=== PATIENT | female | born 1990 | race Two or more races ===

== ENCOUNTER 2023-02-24 20:33 | Emergency (ER) | payer OTHER ==
[~2023-02-24] VITALS: Ht 160 cm; Wt 54.4 kg
== END 2023-02-24 23:07 | disposition home or self-care (01) ==
LOC: ER 20:33
DX: S13.4XXA Sprain of ligaments of cervical spine, initial encounter (principal); V43.52XA Car driver injured in collision with other type car in traffic accident, initial encounter; Y93.89 Activity, other specified; Y92.413 State road as the place of occurrence of the external cause

== ENCOUNTER 2025-09-22 13:30 | Inpatient (IN) | payer OTHER ==
[~2025-09-22] VITALS: Ht 160 cm; Wt 67.6 kg
[2025-09-28] VITALS (9 sets, daily range): BP systolic 92–125; BP diastolic 55–74; O2SAT 98
[2025-09-28] MEDS ORDERED: PRENATAL TABLE1 EAC1 PO (05:13)
[2025-09-28] MEDS ORDERED: RINGERS SOLUTION,LACTATED 1,000 ML IV SCH (05:15)
[2025-09-28 06:09] LABS: BASO % 0.2 % (0.1-1.2); EOS # 0.01 (0.04-0.54); EOS % 0.1 % (0.7-7.0); LYMPH # 1.77 (1.18-3.74); LYMPH % 10.6 % (19.3-53.1); MEAN PLATELET VOLUME 10.50 fl (9.4-12.4); MONO # 0.63 (0.24-0.82); MONO % 3.8 % (4.7-12.5); NEUT # 14.21 (1.56-6.13); NEUT % 84.6 % (34.0-71.1); RED CELL DISTRIBUTION WIDTH 12.7 % (11.6-14.4)
[2025-09-28 06:33] LABS: INR < 0.93
[2025-09-28 06:38] LABS: ALT/SGPT 19.0 U/L (12-78); AST/SGOT 19.0 U/L (15-37); BILIRUBIN TOTAL 0.33 mg/dL (0.3-1.2); BUN CREA RATIO 24.0 (7.0-25.0); CREATININE SERUM 0.55 mg/dL (0.55-1.02); GFR 125.78; GLOBULINA 3.1 G/DL (2.4-3.5); GLUCOSE FASTING 102.0 mg/dL (65-100); OSMOLALITY SERUM 276.0 MOSM/KG (275-295)
[2025-09-28] MEDS ORDERED: LIDOCAINE HCL 1% 10ML VIAL IJ ONE (09:00)
[2025-09-28] MEDS ORDERED: CHLORHEXIDINE GLUCONATE 120 ML BOTTLE TP SCH (10:00)
[2025-09-28] MEDS ORDERED: OXYTOCIN 1,000 ML IV SCH (10:00)
[2025-09-29 00:16] VITALS: BP 93/62
[2025-09-29 07:07] LABS: BASO % 0.2 % (0.1-1.2); EOS # 0.03 (0.04-0.54); EOS % 0.2 % (0.7-7.0); LYMPH # 2.00 (1.18-3.74); LYMPH % 11.3 % (19.3-53.1); MEAN PLATELET VOLUME 10.30 fl (9.4-12.4); MONO # 1.44 (0.24-0.82); MONO % 8.1 % (4.7-12.5); NEUT # 14.11 (1.56-6.13); NEUT % 79.5 % (34.0-71.1); RED CELL DISTRIBUTION WIDTH 13.2 % (11.6-14.4)
[2025-09-29 08:49] VITALS: BP 90/60
[2025-09-29 16:40] VITALS: BP 96/61
[2025-09-30] VITALS: BP 103/58
[2025-09-30 08:53] VITALS: BP 100/60
== END 2025-09-30 12:09 | disposition home or self-care (01) | DRG 807 ==
LOC: LDR 09-28 05:05 → OB/GYN 09-28 05:05
PROVIDERS: Obstetrics & Gynecology; ADMIT Obstetrics & Gynecology Maternal & Fetal Medicine; ATTEND Obstetrics & Gynecology Maternal & Fetal Medicine
PROC: 10E0XZZ Delivery of Products of Conception, External Approach (ICD-10-PCS; principal; 2025-09-28)
PROC: 0KQM0ZZ Repair Perineum Muscle, Open Approach (ICD-10-PCS; 2025-09-28)
PROC: 4A1HXCZ Monitoring of Products of Conception, Cardiac Rate, External Approach (ICD-10-PCS; 2025-09-28)
DX: O70.1 Second degree perineal laceration during delivery (principal); Z37.0 Single live birth; Z3A.39 39 weeks gestation of pregnancy